=== PATIENT | female | born 1935 | race Caucasian/White ===

== ENCOUNTER 2019-01-31 22:16 | Emergency (ER) | payer OTHER ==
[2019-01-31] MEDS ORDERED: ONDANSETRON 4 MG/2 ML VIAL ONE (22:54)
[2019-01-31] MEDS ORDERED: MORPHINE 2 MG/ML SYR ONE (22:54)
[2019-01-31] MEDS ORDERED: NA CHLORIDE 0.9% 500 ML ONE (22:54)
[2019-01-31] MEDS ORDERED: FAMOTIDINE 20 MG/2 ML VIAL IV ONE (22:54)
[2019-01-31] MEDS ORDERED: PROMETHAZINE 25 MG/ML VIAL ONE (23:22)
[2019-01-31 23:27] LABS: Absolute Lymphocytes (CBC) 0.7 K/uL (0.7-4.9); Absolute Monocytes 0.3 K/uL (0.1-1.3); Absolute Neutrophil 8.6 K/uL (1.8-8.0); Basophils % 0.2 % (0-1.3); Eosinophils % 0.1 % (0-4.4); Hematocrit 38.2 % (36.0-45.0); Lymphocytes % 7.8 % (15.3-44.8); MPV 8.8 fL (7.6-11.3); Monocytes % 2.7 % (3.3-12.3); RBC Red Blood Cell Count 4.24 M/uL (3.86-4.86)
[2019-01-31 23:43] LABS: ALT/SGPT 23 U/L (12-78); AST/SGOT 22 U/L (15-37); Alkaline Phosphatase 109 U/L (45-117); BUN Blood Urea Nitrogen 19 mg/dL (7-18); Bicarbonate 30 mmol/L (21-32); Bilirubin Direct 0.1 mg/dL (0-0.2); Bilirubin Total 0.4 mg/dL (0.2-1.0); Glucose Level 171 mg/dL (74-106); Lipase 105 U/L (73-393); Magnesium 2.2 mg/dL (1.8-2.4); NT PRO-BNP 205 pg/mL (<450); Potassium 3.9 mmol/L (3.5-5.1); Protein, Total 7.3 g/dL (6.4-8.2); Sodium Level 140 mmol/L (136-145); Troponin (Emerg Dept Use Only) < 0.02 ng/mL (0.0-0.045)
[2019-02-01 00:14] LABS: Protime INR 0.95
[2019-02-01 00:40] LABS: Blood Morphology Comment NOT SEEN (NOT SEEN); Platelet Estimate ADEQ
[2019-02-01] MEDS ORDERED: MAGNESIUM CITRATE 300 ML BOT ONE (02:07)
[2019-02-01] MEDS ORDERED: NA CHLORIDE 0.9% 1,000 ML ONE (02:07)
--- NOTE | 2019-02-01 02:26 | EDPHYS ---
Physician Documentation [facility] Name: Hoa Canchola Age: 83 yrs Sex: Female : 1935 Arrival Date: 01/31/2019 Time: 22:28 Bed 30 Private MD: ED Physician Shemar Rincon HPI: 01/31 22:40 This 83 yrs old Female presents to ER via EMS with complaints of cp nausea/vomiting, abdominal pain. Historical: - Allergies: 22:49 No Known Allergies; cr4 - Home Meds: 22:49 Prilosec 20 mg Oral cpDR 1 cap once daily [Active]; alendronate 35 mg oral tab 1 tab cr4 once wkly [Active]; aspirin 81 mg Oral chew 1 tab once daily [Active]; Tylenol-Codeine #3 300-30 mg oral tab 1 tab bid for Pain [Active]; 22:57 temazepam 15 mg oral cap [Active]; cr4 - PMHx: 22:49 Diabetes - NIDDM; essential tremors; cr4 - PSHx: 22:49 Cholecystectomy; rotator cuff sx; vericose adan sx; cr4 - Immunization history:: Adult Immunizations up to date, Flu vaccine is up to date. - Social history:: Smoking status: Patient/guardian denies using tobacco, Patient/guardian denies using The patient lives. - Ebola Screening: : Patient negative for fever greater than or equal to 101.5 degrees Fahrenheit, and additional compatible Ebola Virus Disease symptoms Patient denies exposure to infectious person Patient denies travel to an Ebola-affected area in the 21 days before illness onset No symptoms or risks identified at this time. ROS: 22:55 Constitutional: Negative for body aches, chills, fever, poor PO intake. cp 22:55 Eyes: Negative for injury, pain, redness, and discharge. cp 22:55 ENT: Negative for drainage from ear(s), ear pain, sore throat, difficulty swallowing, difficulty handling secretions. 22:55 Cardiovascular: Negative for chest pain, edema, palpitations. 22:55 Respiratory: Negative for cough, shortness of breath, wheezing. 22:55 Abdomen/GI: Positive for abdominal pain, nausea and vomiting, Negative for diarrhea, constipation, hematemesis, black/tarry stool, rectal bleeding. 22:55 Back: Negative for pain at rest, pain with movement, radiated pain. 22:55 : Negative for urinary symptoms, vaginal bleeding. 22:55 Skin: Negative for cellulitis, rash. 22:55 Neuro: Negative for altered mental status, dizziness, headache, weakness. 22:55 All other systems are negative. Exam: 23:00 Constitutional: The patient appears alert, awake, non-toxic, well developed, well cp nourished, uncomfortable. 23:00 Head/Face: Normocephalic, atraumatic. cp 23:00 Eyes: Periorbital structures: appear normal, Conjunctiva: normal, no exudate, no injection, Lids and lashes: appear normal, bilaterally. 23:00 ENT: External ear(s): are unremarkable, Nose: is normal, Mouth: Lips: moist, Oral mucosa: moist, Posterior pharynx: is normal, airway is patent, no erythema, no exudate. 23:00 Neck: ROM/movement: is normal, is supple, without pain, no range of motions limitations, no nuchal rigidity. 23:00 Chest/axilla: Inspection: normal, Palpation: is normal, no crepitus, no tenderness. 23:00 Cardiovascular: Rate: normal, Rhythm: regular, Edema: is not appreciated, JVD: is not appreciated. 23:00 Respiratory: the patient does not display signs of respiratory distress, Respirations: normal, no use of accessory muscles, no retractions, no splinting, no tachypnea, Breath sounds: are clear throughout, no decreased breath sounds, no stridor, no wheezing. 23:00 Abdomen/GI: Inspection: distension, that is mild, Bowel sounds: active, all quadrants, Palpation: soft, in all quadrants, mild abdominal tenderness, in all quadrants, rebound tenderness, is not appreciated, voluntary guarding, is not appreciated, involuntary guarding, is not appreciated. 23:00 Back: pain, is absent, ROM is normal. 23:00 Skin: no rash present. 23:00 Neuro: Orientation: to person, place \T\ time. Mentation: is normal, Motor: moves all fours, strength is normal. Vital Signs: 23:04 BP 130 / 89 RA; Pulse 83; Resp 18 S; Temp 98(A); Pulse Ox 97% on R/A; rv 04/06 00:00 BP 99 / 59; Pulse 92; Resp 16; Pulse Ox 96% ; Pain 0/10; cr4 01:16 BP 102 / 57; Pulse 88; Temp 99; Pulse Ox 96% ; cr4 MDM: 01/31 22:32 Patient medically screened. cp 23:00 Differential diagnosis: Nonspecific abd pain, diverticulitis, bowel obstruction, acute cp HI, bowel perforation. 02/01 02:20 ED course: VSS. Patient reports pain and vomiting resolved. Patient reports large bowel cp movement while in ED. Will discharge to home for continued monitoring. 02:24 Data reviewed: vital signs, nurses notes, lab test result(s), EKG, radiologic studies, cp CT scan. 02:24 Test interpretation: by ED physician or midlevel provider: ECG. Test interpretation: by cp ED physician or midlevel provider: chest xray negative for infiltrates. Counseling: I had a detailed discussion with the patient and/or guardian regarding: the historical points, exam findings, and any diagnostic results supporting the discharge/admit diagnosis. Response to treatment: the patient's symptoms have markedly improved after treatment, and as a result, I will discharge patient. 01/31 22:36 Order name: Basic Metabolic Panel 04 22:36 Order name: CBC with Diff cp 01/31 22:36 Order name: LFT's cp 01/31 22:36 Order name: Magnesium cp 04 22:36 Order name: NT PRO-BNP cp 01/31 22:36 Order name: PT-INR cp 01/31 22:36 Order name: Troponin (emerg Dept Use Only); Complete Time: 00:10 cp 01/31 22:36 Order name: Lipase; Complete Time: 00:10 cp 01/31 22:36 Order name: Basic Metabolic Panel; Complete Time: 00:10 EDMS 02/01 01:58 Interpretation: Normal except: GLUC 171; BUN 19. cp 01/31 22:36 Order name: CBC with Automated Diff; Complete Time: 01:30 EDMS 02/01 01:59 Interpretation: Normal except: BERTO% 89.2; LYM% 7.8; MN% 2.7; NEUT A 8.6. cp 01/31 22:36 Order name: Liver (Hepatic) Function; Complete Time: 00:10 EDMS 01/31 22:36 Order name: Magnesium; Complete Time: 00:10 EDMS 01/31 22:36 Order name: NT PRO-BNP; Complete Time: 00:10 EDMS 01/31 22:36 Order name: Protime (+INR); Complete Time: 01:30 EDMS 01/31 22:36 Order name: XRAY Chest (1 view) cp 01/31 22:36 Order name: Cardiac monitoring; Complete Time: 02:27 cp 01/31 22:36 Order name: EKG - Nurse/Tech; Complete Time: 02:27 cp 02/01 00:09 Order name: CT Abd/Pelvis - W/Contrast: no oral contrast cp 02/01 00:39 Order name: Manual Differential; Complete Time: 01:30 EDMS 02/01 01:30 Interpretation: Normal except: SEGS 86; BANDS [F] 4; LYM 7. cp 02/01 02:31 Order name: Urine Dipstick--Ancillary (enter results) cm6 01/31 22:36 Order name: IV Saline Lock; Complete Time: 02:27 cp 01/31 22:36 Order name: Labs collected and sent; Complete Time: 02:26 cp 01/31 22:36 Order name: O2 Per Protocol; Complete Time: 02:27 cp 01/31 22:36 Order name: O2 Sat Monitoring; Complete Time: 02:27 cp Administered Medications: 01/31 22:50 Drug: Pepcid 20 mg Route: IVP; Site: right antecubital; rv 23:00 Follow up: Response: No adverse reaction cr4 22:50 Drug: Zofran 4 mg Route: IVP; Site: right antecubital; rv 23:10 Follow up: Response: No adverse reaction; Nausea unchanged cr4 22:50 Drug: morphine 2 mg Route: IVP; Site: right antecubital; rv 23:37 Follow up: Response: No adverse reaction cr4 23:01 Drug: NS 0.9% 500 ml Route: IV; Rate: 250 ml/hr; Site: right antecubital; rv 23:25 Follow up: Response: No adverse reaction; IV Status: Completed infusion; IV Intake: cr4 440ml 23:01 Not Given (SHIFTED TO IV): Zofran 4 mg PO once rv 23:18 Drug: Phenergan 12.5 mg Route: IVP; Site: right antecubital; cr4 23:37 Follow up: Response: No adverse reaction; Nausea is decreased cr4 02/01 02:00 Drug: Magnesium Citrate Liquid 300 ml Route: PO; cr4 02:40 Follow up: Response: No adverse reaction; Other cr4 02:00 Drug: NS 0.9% 1000 ml Route: IV; Rate: 75 ml/hr; Site: right antecubital; cr4 02:40 Follow up: Response: No adverse reaction; IV Status: Order to discontinue infusion; IV cr4 Intake: 79ml 02:19 Not Given (on hold per orders): Dulcolax Suppository 10 mg OR once cr4 Disposition: 02:49 Co-signature as Attending Physician, hSemar Rincon MD. chaparro Disposition: 02/01/19 02:25 Discharged to Home. Impression: Nausea and vomiting, Constipation, Fecal impaction. - Condition is Stable. - Discharge Instructions: Constipation, Adult, Nausea and Vomiting, Adult, Fecal Impaction. - Prescriptions for docusate sodium 100 mg Oral capsule - take 1 capsule by ORAL route 2 times per day; 30 capsule. Zofran 4 mg Oral Tablet - take 1 tablet by ORAL route every 12 hours As needed; 20 tablet. - Medication Reconciliation Form, Thank You Letter, Antibiotic Education, Prescription Opioid Use form. - Follow up: Private Physician; When: 1 - 2 days; Reason: Recheck today's complaints. - Problem is new. - Symptoms have improved. Signatures: Dispatcher [employer] EDMS Shemar Rincon MD MD pkSuzie De La Garza RN RN cr4 Kaveh Betts PA PA cp Vicente, Ronaldo RN RN rv Corrections: (The following items were deleted from the chart) 01/31 22:57 22:49 Home Meds: Temazepam 5mg Oral 1 cap once daily; cr4 cr4 02/01 02:47 02:25 02/01/2019 02:25 Discharged to Home. Impression: Nausea and vomiting; cr4 Constipation; Fecal impaction. Condition is Stable. Forms are Medication Reconciliation Form, Thank You Letter, Antibiotic Education, Prescription Opioid Use. Follow up: Private Physician; When: 1 - 2 days; Reason: Recheck today's complaints. Problem is new. Symptoms have improved. cp
--- NOTE | 2019-02-01 02:26 | ER ---
Nurse's Notes [facility] Name: Hoa Canchola Age: 83 yrs Sex: Female : 1935 Arrival Date: 01/31/2019 Time: 22:28 Bed 30 Private MD: Diagnosis: Nausea and vomiting;Constipation;Fecal impaction Presentation: 01/31 22:29 Presenting complaint: Patient states: patient started having nausea with uncontrolled cr4 vomiting which started at around 1900. No reports of abd last bm 01/30. EMS reported patient vomiting 300-400ml on route to ER. was given a total of 4mg Zofran IV. Transition of care: patient was not received from another setting of care. Onset of symptoms was January 31, 2019. Risk Assessment: Do you want to hurt yourself or someone else? Patient reports no desire to harm self or others. Initial Sepsis Screen: Does the patient meet any 2 criteria? No. Patient's initial sepsis screen is negative. Care prior to arrival: Medication(s) given: zofran 4 mg. Activity prior to arrival: moaning due to nausea. 22:29 Method Of Arrival: EMS: [facility] cr4 22:29 Acuity: GUZMAN 3 cr4 22:56 Initial Sepsis Screen:. cr4 23:03 Initial Sepsis Screen: Does the patient have a suspected source of infection? No. cr4 Patient's initial sepsis screen is negative. 23:04 Initial Sepsis Screen: Does the patient have a suspected source of infection? No. rv Patient's initial sepsis screen is negative. Triage Assessment: 22:50 General: Appears uncomfortable, slender, well groomed, Behavior is restless. Pain: cr4 Denies pain. EENT: No deficits noted. Neuro: No deficits noted. Denies weakness dizziness, difficulty swallowing, numbness headache. Cardiovascular: No deficits noted. Denies chest pain, fatigue, lightheadedness, shortness of breath. Cardiovascular: Capillary refill < 3 seconds. Respiratory: No deficits noted. Airway is patent Trachea midline Respiratory effort is even, unlabored, Respiratory pattern is regular, Breath sounds are clear bilaterally. GI: Abdomen is round distended, Pt is actively vomiting clear fluid, Last BM was January 30, 2019. Bowel sounds diminished in right upper quadrant, left upper quadrant, right lower quadrant and left lower quadrant hypoactive in right upper quadrant, left upper quadrant, right lower quadrant and left lower quadrant Abd is non tender X 4 quads Reports Patient currently denies abdominal pain, constipation, diarrhea. : Denies burning with urination, pain urinary frequency. Derm: No deficits noted. Musculoskeletal: No deficits noted. Historical: - Allergies: 22:49 No Known Allergies; cr4 - Home Meds: 22:49 Prilosec 20 mg Oral cpDR 1 cap once daily [Active]; alendronate 35 mg oral tab 1 tab cr4 once wkly [Active]; aspirin 81 mg Oral chew 1 tab once daily [Active]; Tylenol-Codeine #3 300-30 mg oral tab 1 tab bid for Pain [Active]; 22:57 temazepam 15 mg oral cap [Active]; cr4 - PMHx: 22:49 Diabetes - NIDDM; essential tremors; cr4 - PSHx: 22:49 Cholecystectomy; rotator cuff sx; vericose adan sx; cr4 - Immunization history:: Adult Immunizations up to date, Flu vaccine is up to date. - Social history:: Smoking status: Patient/guardian denies using tobacco, Patient/guardian denies using The patient lives. - Ebola Screening: : Patient negative for fever greater than or equal to 101.5 degrees Fahrenheit, and additional compatible Ebola Virus Disease symptoms Patient denies exposure to infectious person Patient denies travel to an Ebola-affected area in the 21 days before illness onset No symptoms or risks identified at this time. Screenin:03 Abuse screen: Denies threats or abuse. Denies injuries from another. Nutritional rv screening: No deficits noted. Tuberculosis screening: No symptoms or risk factors identified. Fall Risk None identified. Assessment: 22:57 General: See triage assessment. cr4 23:38 Reassessment: Patient and/or family updated on plan of care and expected duration. Pain cr4 level reassessed. Patient is alert, oriented x 3, equal unlabored respirations, skin warm/dry/pink. Patient states feeling better. Patient states symptoms have improved. 04/06 00:53 Reassessment: No changes from previously documented assessment. Patient denies pain at cr4 this time. Patient states feeling better. Patient states symptoms have improved. 01:50 Reassessment: No changes from previously documented assessment. Patient and/or family cr4 updated on plan of care and expected duration. Pain level reassessed. Patient states feeling better. up to bathroom urine sample optained.. 02:20 GI: Reports having large bm Patient currently denies nausea, pain, vomiting. cr4 Vital Signs: 01/31 23:04 BP 130 / 89 RA; Pulse 83; Resp 18 S; Temp 98(A); Pulse Ox 97% on R/A; rv 02/01 00:00 BP 99 / 59; Pulse 92; Resp 16; Pulse Ox 96% ; Pain 0/10; cr4 01:16 BP 102 / 57; Pulse 88; Temp 99; Pulse Ox 96% ; cr4 ED Course: 01/31 22:28 Patient arrived in ED. rv 22:32 Kaveh Betts PA is PHCP. cp 22:32 Shemar Rincon MD is Attending Physician. cp 22:34 Triage completed. cr4 22:45 Inserted saline lock: 20 gauge in right antecubital area, using aseptic technique. rv Blood collected. 22:58 XRAY Chest (1 view) In Process Unspecified. EDMS 23:03 Arm band placed on right wrist. rv 23:39 Patient has correct armband on for positive identification. Bed in low position. Side cr4 rails up X2. environmental monitoring specialist on. 02/01 00:[address] cr4 00:58 CT Abd/Pelvis - W/Contrast: no oral contrast In Process Unspecified. EDMS 02:45 IV discontinued, intact, bleeding controlled, No redness/swelling at site. cr4 02:45 No provider procedures requiring assistance completed. cr4 03:34 Basic Metabolic Panel Sent. cr4 03:34 CBC with Diff Sent. cr4 03:34 LFT's Sent. cr4 03:34 Magnesium Sent. cr4 03:34 PT-INR Sent. cr4 Administered Medications: 01/31 22:50 Drug: Pepcid 20 mg Route: IVP; Site: right antecubital; rv 23:00 Follow up: Response: No adverse reaction cr4 22:50 Drug: Zofran 4 mg Route: IVP; Site: right antecubital; rv 23:10 Follow up: Response: No adverse reaction; Nausea unchanged cr4 22:50 Drug: morphine 2 mg Route: IVP; Site: right antecubital; rv 23:37 Follow up: Response: No adverse reaction cr4 23:01 Drug: NS 0.9% 500 ml Route: IV; Rate: 250 ml/hr; Site: right antecubital; rv 23:25 Follow up: Response: No adverse reaction; IV Status: Completed infusion; IV Intake: cr4 440ml 23:01 Not Given (SHIFTED TO IV): Zofran 4 mg PO once rv 23:18 Drug: Phenergan 12.5 mg Route: IVP; Site: right antecubital; cr4 23:37 Follow up: Response: No adverse reaction; Nausea is decreased cr4 04 02:00 Drug: Magnesium Citrate Liquid 300 ml Route: PO; cr4 02:40 Follow up: Response: No adverse reaction; Other cr4 02:00 Drug: NS 0.9% 1000 ml Route: IV; Rate: 75 ml/hr; Site: right antecubital; cr4 02:40 Follow up: Response: No adverse reaction; IV Status: Order to discontinue infusion; IV cr4 Intake: 79ml 02:19 Not Given (on hold per orders): Dulcolax Suppository 10 mg ND once cr4 Intake: 01/31 23:25 IV: 440ml; Total: 440ml. cr4 04 02:40 IV: 79ml; Total: 519ml. cr4 Outcome: 02:25 Discharge ordered by MD. cp 02:45 Discharged to home ambulatory, with family. cr4 02:45 Condition: improved 02:45 Discharge instructions given to patient, family, Instructed on discharge instructions, follow up and referral plans. medication usage, Demonstrated understanding of instructions, follow-up care, medications, Prescriptions given X 2. 02:47 Patient left the ED. cr4 Signatures: Dispatcher [employer] EDSuzie Null RN RN cr4 Kaveh Betts PA PA cp Vicente, Ronaldo RN RN rv Corrections: (The following items were deleted from the chart) 01/31 22:57 22:49 Home Meds: Temazepam 5mg Oral 1 cap once daily; cr4 cr4 02/01 03:32 03:31 No provider procedures requiring assistance completed. cr4 cr4
[2019-02-01 03:03] LABS: Urine Blood TRACE (NEG); Urine Glucose NEGATIVE (NEG); Urine Protein NEGATIVE (NEG); Urine Specific Gravity 1.015 (1.005-1.030)
[2019-02-01 04:10] VITALS: O2SAT 96
[2019-02-01 04:11] VITALS: BP 102/57; TEMP 99
--- NOTE | 2019-02-01 07:41 | RAD REPORT ---
EXAM DESCRIPTION: RAD - Chest Single View - 01/31/2019 10:58 pm CLINICAL HISTORY: Abdominal pain, vomiting COMPARISON: January 2012 TECHNIQUE: AP portable chest image was obtained 2244 hours . FINDINGS: No focal mass or consolidation. No failure or volume overload. Interstitial markings are p rominent, increased from the comparison. Over this long interval. This could be progressive fibrosis or represent acute interstitial edema or infiltrate. Heart and vasculature are normal. No measurable pleural effusion and no pneumothorax. No acute bone finding. Thoracolumbar scoliosis noted. No acute aortic findings suspected. IMPRESSION: No focal mass, consolidation or significant failure finding. Prominent interstitial pattern increased over comparison. Over such a long interval, interstitial change could be progressive fibrosis, acute infiltrate or acu te interstitial edema.
--- NOTE | 2019-02-01 11:48 | RAD REPORT ---
EXAM DESCRIPTION: CT - Abdomen Pelvis W Contrast - 02/01/2019 1:25 am CLINICAL HISTORY: The patient is 83 years old and is Female; ABD PAIN TECHNIQUE: Axial computed tomography images of the abdomen and pelvis with intravenous contrast. S agittal and coronal reformatted images were created and reviewed. This CT exam was performed using one or more of the following dose reduction techniques: automated exposure control, adjustment of t he mA and/or kV according to patient size, and/or use of iterative reconstruction technique. COMPARISON: None. FINDINGS: LUNG BASES: Bibasilar chronic lung changes. HEART: Visualized heart is enlarged. Calcification of the mitral annulus. ABDOMEN: LIVER: Unremarkable. No mass. GALLBLADDER AND BILE DUCTS: Prior cholecystectomy with diffuse intrahepatic ductal dilatation and prominence of the common bile duct. PANCREAS: Unremarkable. No mass. No ductal dilation. SPLEEN: Unremarkable. No splenomegaly. ADRENALS: Unremarkable. No mass. KIDNEYS AND URETERS: Unremarkable. No solid mass. No hydronephrosis. STOMACH AND BOWEL: Marked distention of the rectum measuring 10 cm with distention of the sigmoid. Additionally, there is advanced over the center of the large bowel. No mucosal thickening. PELVIS: APPENDIX: The appendix is seen and is within normal limits BLADDER: Unremarkable. No mass. REPRODUCTIVE: Partially evaluated heterogenous mass in the region of the uterine fundus, likely fi broid. ABDOMEN and PELVIS: INTRAPERITONEAL SPACE: Unremarkable. No free air. No significant fluid collection. BONES/JOINTS: Grade 1 anterolisthesis of L4 on L5. Advanced facet arthropathy Multilevel degenerative disc disease. Diffuse osteopenia. No acute fracture. No dislocation. SOFT TISSUES: Unremarkable. VASCULATURE: Unremarkable. No abdominal aortic aneurysm. LYMPH NODES: Unremarkable. No enlarged lymph nodes. IMPRESSION: 1. Marked distention of the rectum and sigmoid colon as well as severe stool burden krause ggestive of fecal impaction and/or advanced constipation. 2. Prior cholecystectomy with diffuse intrahepatic and extrahepatic ductal dilatation. No radiopaqu e stone 3. Cardiomegaly and bibasilar chronic lung changes. 4. Possible uterine fundus fibroid. 5. Grade 1 anterolisthesis of L4-L5 and a degenerative basis. 6. Diffuse osteopenia. Electronically signed by: Khris Carolina DO 02/01/2019 1:18 AM CDT Due to temporary technical issues with the PACS/Fluency reporting system, reports are being signed by the in house radiologist as a courtesy to ensure prompt reporting. The interpreting radiologist is f ully responsible for the content of the report.
== END 2019-02-01 02:47 | disposition home or self-care (01) ==
LOC: ER 22:16
DX: K56.41 Fecal impaction (principal); K59.00 Constipation, unspecified; E11.9 Type 2 diabetes mellitus without complications; Z79.82 Long term (current) use of aspirin
CPT/HCPCS: 96361; 85025; 80048; 36415; 83735; 85610; 80076; 81003; 84484; 83690; 83880; 74177; 71045; 96375; 96374; 99284; Q9967; J2550; J2270; J7030; J2405

== ENCOUNTER 2019-05-12 11:32 | Emergency (ER) | payer OTHER ==
--- NOTE | 2019-05-12 11:57 | RAD REPORT ---
EXAM DESCRIPTION: CT - Head Brain Wo Cont - 05/12/2019 11:45 am CLINICAL HISTORY: TRAUMA Syncope, head injury, trauma COMPARISON: No comparisons TECHNIQUE: All CT scans are performed using dose optimization technique as appropriate and may inclu de automated exposure control or mA/KV adjustment according to patient size. FINDINGS: No intracranial hemorrhage, hydrocephalus or extra-axial fluid collection.Mild generalized brain atrophy.No areas of brain edema or evidence of midline shift. The paranasal sinuses and mastoids are clear. The calvarium is intact. IMPRESSION: No acute intracranial abnormality.
[2019-05-12] MEDS ORDERED: DERMABOND SKIN ADHESIVE TOP ONE (12:54)
--- NOTE | 2019-05-12 12:56 | ER ---
Nurse's Notes [facility] [place] Name: Hoa Canchola Age: 83 yrs Sex: Female : 1935 Arrival Date: 05/12/2019 Time: 11:33 Bed 8 Private MD: Alex Cazares E Diagnosis: Laceration without foreign body left ear;Hematoma of pinna, left ear Presentation: 05/12 11:42 Presenting complaint: Patient states: Fell approximately 2 hours ago in shower. ss bruising, swelling with small amount of bleeding noted to L ear. Pt is awake, alert and oriented x 3. Care prior to arrival: None. Mechanism of Injury: Fall from standing position. Trauma event details: Injury occurred in the [facility], Injury occurred: at home. Injury occurred: May 12, 2019. 11:42 Acuity: GUZMAN 2 ss 11:42 Method Of Arrival: Wheelchair ss 11:42 Transition of care: patient was not received from another setting of care. Onset of ss symptoms was May 12, 2019. Risk Assessment: Do you want to hurt yourself or someone else? Patient reports no desire to harm self or others. Initial Sepsis Screen: Does the patient meet any 2 criteria? No. Patient's initial sepsis screen is negative. Does the patient have a suspected source of infection? No. Patient's initial sepsis screen is negative. Trauma Activation: Alert Physician: ED Physician; Name: ; Notified At: ; Arrived At: Physician: General Surgeon; Name: ; Notified At: ; Arrived At: Physician: Radiology; Name: ; Notified At: ; Arrived At: Physician: Respiratory; Name: ; Notified At: ; Arrived At: Physician: Lab; Name: ; Notified At: ; Arrived At: Historical: - Allergies: 11:48 No Known Allergies; ss - PMHx: 11:48 Diabetes - NIDDM; ESSENTIAL TREMORS; ss - PSHx: 11:48 Cholecystectomy; rotator cuff sx; vericose adan sx; ss - Immunization history: Last tetanus immunization: unknown. - Social history:: Smoking status: Patient/guardian denies using tobacco. - Ebola Screening: : Patient denies exposure to infectious person Patient denies travel to an Ebola-affected area in the 21 days before illness onset. Screenin:42 Abuse screen: Denies threats or abuse. Denies injuries from another. Tuberculosis ss screening: Never had TB. Fall risk At risk due to age, prior history of falls. Primary Survey: 11:42 NO uncontrolled hemorrhage observed. A: The patient is alert. Airway: patent. ss Breathing/Chest: Respiratory pattern: regular, Respiratory effort: spontaneous, unlabored. Circulation: Pulses: palpable right radial artery and left radial artery. Skin color: pink, Skin temperature: warm. Disability Alert. Exposure/Environment: There is no evidence of uncontrolled external bleeding. Obvious injury(ies) are noted at this time: bruising, swelling and small amount of bleeding noted to L ear. Assessment: 12:10 General: Appears in no apparent distress. well groomed, well developed, well nourished, sg Behavior is calm, cooperative, appropriate for age. Pain: Complains of pain in left ear Quality of pain is described as aching, tender. 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 Full function Gait is steady, Speech is normal, Facial symmetry appears normal. Cardiovascular: Capillary refill is brisk in bilateral fingers Patient's skin is warm and dry. Chest pain is denied. Respiratory: Airway is patent Respiratory effort is even, unlabored, Respiratory pattern is regular, symmetrical. GI: No deficits noted. : No signs and/or symptoms were reported regarding the genitourinary system. EENT: Ear canal clear on right ear and left ear Throat is clear. Derm: Skin is pink, warm \T\ dry. Musculoskeletal: Circulation, motion, and sensation intact. Range of motion: intact in all extremities. Vital Signs: 11:42 BP 137 / 81; Pulse 95; Resp 18; Pulse Ox 99% on R/A; Weight 46.72 kg; Height 5 ft. 3 ss in. (160.02 cm); Pain 0/10; 12:40 BP 130 / 72; Pulse 82; Resp 17; Temp 97.6; Pulse Ox 99% on R/A; sg 11:42 Body Mass Index 18.25 (46.72 kg, 160.02 cm) [place] Coma Score: 11:42 Eye Response: spontaneous(4). Verbal Response: oriented(5). Motor Response: obeys commands(6). Total: 15. 12:40 Eye Response: spontaneous(4). Verbal Response: oriented(5). Motor Response: obeys sg commands(6). Total: 15. Trauma Score (Adult): 11:42 Eye Response: spontaneous(1); Verbal Response: oriented(1); Motor Response: obeys ss commands(2); Systolic BP: > 89 mm Hg(4); Respiratory Rate: 10 to 29 per min(4); [place] Score: 15; Trauma Score: 12 12:40 Eye Response: spontaneous(1); Verbal Response: oriented(1); Motor Response: obeys sg commands(2); Systolic BP: > 89 mm Hg(4); Respiratory Rate: 10 to 29 per min(4); Stokes Score: 15; Trauma Score: 12 ED Course: 11:33 Patient arrived in ED. rg4 11:33 Alex Cazares MD is Private Physician. rg4 11:38 Jeferson Andersen, RN is Primary Nurse. sg 11:39 Darwin Gleason PA is PHCP. jr8 11:39 Sawyer Hwang MD is Attending Physician. jr8 11:42 Patient has correct armband on for positive identification. Bed in low position. Call ss light in reach. Patient maintains SpO2 saturation greater than 95% on room air. 11:42 Patient maintains SpO2 saturation greater than 95% on room air. ss 11:45 CT Head Brain wo Cont In Process Unspecified. EDMS 11:45 Triage completed. ss 11:48 Arm band placed on right wrist. ss 12:10 Thermoregulation: warm blanket given to patient. sg 12:55 Alex Cazares MD is Referral Physician. jr8 13:20 No provider procedures requiring assistance completed. Patient did not have IV access sg during this emergency room visit. Administered Medications: No medications were administered Outcome: 12:56 Discharge ordered by . jr8 13:20 Discharged to home via wheelchair, with family. sg 13:20 Condition: good 13:20 Discharge instructions given to patient, family, Instructed on discharge instructions, follow up and referral plans. safety practices, wound care, Demonstrated understanding of instructions, follow-up care, wound care. 13:20 Patient's length of stay in the Emergency Department was greater than 2 hours. dispo sg per providerPatient's length of stay extended due to 13:27 Patient left the ED. sg Signatures: Dispatcher [employer] Jeferson Elizabteh RN RN sg Smirch, Shelby, RN RN ss Darwin Gleason PA PA [facility]
--- NOTE | 2019-05-12 12:57 | EDPHYS ---
Physician Documentation [facility] Name: Hoa Canchola Age: 83 yrs Sex: Female : 1935 Arrival Date: 05/12/2019 Time: 11:33 Bed 8 Private MD: Alex Cazares E ED Physician Sawyer Hwang HPI: 05/12 11:57 This 83 yrs old Female presents to ER via Wheelchair with complaints of Fall jr8 Injury. 11:57 Details of fall: The patient fell from an upright position, while standing. Onset: The jr8 symptoms/episode began/occurred acutely, just prior to arrival. Associated injuries: The patient sustained injury to the head, contusion, laceration, 1 cm(s), of the left ear, swelling. Severity of symptoms: At their worst the symptoms were mild, in the emergency department the symptoms are unchanged. The patient has not experienced similar symptoms in the past. The patient has not recently seen a physician. was standing in bathroom and leaned on side of tub, fell into tub striking left ear. Denies pain, denies LOC.. Historical: - Allergies: 11:48 No Known Allergies; ss - PMHx: 11:48 Diabetes - NIDDM; ESSENTIAL TREMORS; ss - PSHx: 11:48 Cholecystectomy; rotator cuff sx; vericose adan sx; ss - Immunization history: Last tetanus immunization: unknown. - Social history:: Smoking status: Patient/guardian denies using tobacco. - Ebola Screening: : Patient denies exposure to infectious person Patient denies travel to an Ebola-affected area in the 21 days before illness onset. ROS: 11:57 Constitutional: Negative for fever, chills, and weight loss, Eyes: Negative for injury, jr8 pain, redness, and discharge, Neck: Negative for injury, pain, and swelling, Cardiovascular: Negative for chest pain, palpitations, and edema, Respiratory: Negative for shortness of breath, cough, wheezing, and pleuritic chest pain, Abdomen/GI: Negative for abdominal pain, nausea, vomiting, diarrhea, and constipation, Back: Negative for injury and pain, MS/Extremity: Negative for injury and deformity, Skin: Negative for injury, rash, and discoloration, Neuro: Negative for headache, weakness, numbness, tingling, and seizure. 11:57 ENT: Positive for injury or acute deformity, contusion, laceration, Negative for drainage from ear(s), ear pain, hearing loss, Teeth pain Exam: 12:00 Constitutional: This is a well developed, well nourished patient who is awake, alert, jr8 and in no acute distress. Head/Face: Normocephalic, atraumatic. Neck: Trachea midline, no thyromegaly or masses palpated, and no cervical lymphadenopathy. Supple, full range of motion without nuchal rigidity, or vertebral point tenderness. No Meningismus. Chest/axilla: Normal chest wall appearance and motion. Nontender with no deformity. No lesions are appreciated. Cardiovascular: Regular rate and rhythm with a normal S1 and S2. No gallops, murmurs, or rubs. Normal PMI, no JVD. No pulse deficits. Respiratory: Lungs have equal breath sounds bilaterally, clear to auscultation and percussion. No rales, rhonchi or wheezes noted. No increased work of breathing, no retractions or nasal flaring. Abdomen/GI: Soft, non-tender, with normal bowel sounds. No distension or tympany. No guarding or rebound. No evidence of tenderness throughout. Back: No spinal tenderness. No costovertebral tenderness. Full range of motion. Skin: Warm, dry with normal turgor. Normal color with no rashes, no lesions, and no evidence of cellulitis. MS/ Extremity: Pulses equal, no cyanosis. Neurovascular intact. Full, normal range of motion. Neuro: Awake and alert, GCS 15, oriented to person, place, time, and situation. Cranial nerves II-XII grossly intact. Motor strength 5/5 in all extremities. Sensory grossly intact. Cerebellar exam normal. Normal gait. 12:00 ENT: External ear(s): contusion, on the pinna of left ear, laceration, to the pinna of left ear, swelling, Ear canal(s): are normal, no swelling, Examination of the other ear shows no obvious abnormality. Vital Signs: 11:42 BP 137 / 81; Pulse 95; Resp 18; Pulse Ox 99% on R/A; Weight 46.72 kg; Height 5 ft. 3 ss in. (160.02 cm); Pain 0/10; 12:40 BP 130 / 72; Pulse 82; Resp 17; Temp 97.6; Pulse Ox 99% on R/A; sg 11:42 Body Mass Index 18.25 (46.72 kg, 160.02 cm) ss [place] Coma Score: 11:42 Eye Response: spontaneous(4). Verbal Response: oriented(5). Motor Response: obeys ss commands(6). Total: 15. 12:40 Eye Response: spontaneous(4). Verbal Response: oriented(5). Motor Response: obeys sg commands(6). Total: 15. Trauma Score (Adult): 11:42 Eye Response: spontaneous(1); Verbal Response: oriented(1); Motor Response: obeys ss commands(2); Systolic BP: > 89 mm Hg(4); Respiratory Rate: 10 to 29 per min(4); [place] Score: 15; Trauma Score: 12 12:40 Eye Response: spontaneous(1); Verbal Response: oriented(1); Motor Response: obeys sg commands(2); Systolic BP: > 89 mm Hg(4); Respiratory Rate: 10 to 29 per min(4); [place] Score: 15; Trauma Score: 12 Laceration: 12:56 Wound Repair of 1cm ( 0.4in ) subcutaneous laceration to pinna of left ear. Linear jr8 shaped.. Minimal bleeding noted.. Distal neuro/vascular/tendon intact. Skin closed with 1-0 Prolene using Dermabond. Dressed with pressure dressing. Patient tolerated well. MDM: 11:39 Patient medically screened. jr8 12:54 Data reviewed: vital signs, nurses notes, and as a result, I will discharge patient. jr8 Data interpreted: Pulse oximetry: on room air is 99 %. Interpretation: normal. Counseling: I had a detailed discussion with the patient and/or guardian regarding: the historical points, exam findings, and any diagnostic results supporting the discharge/admit diagnosis, the need for outpatient follow up, a family practitioner, to return to the emergency department if symptoms worsen or persist or if there are any questions or concerns that arise at home. 05/12 11:39 Order name: CT Head Brain wo Cont; Complete Time: 12:12 jr8 05/12 12:25 Order name: Dermabond; Complete Time: 12:59 jr8 Administered Medications: No medications were administered Disposition: 16:42 Co-signature as Attending Physician, Sawyer Hwang MD I agree with the assessment and kdr plan of care. 16:42 Co-signature as Attending Physician, Sawyer Hwang MD I agree with the assessment and kdr plan of care. Disposition: 05/12/19 12:56 Discharged to Home. Impression: Laceration without foreign body left ear, Hematoma of pinna, left ear. - Condition is Stable. - Discharge Instructions: Hematoma, Laceration Care, Adult, Stitches, [place], or Adhesive Wound Closure. - Medication Reconciliation Form, Thank You Letter, Antibiotic Education, Prescription Opioid Use form. - Follow up: Alex Cazares MD; When: 2 - 3 days; Reason: Wound Recheck, Recheck today's complaints, Continuance of care, Re-evaluation by your physician. - Problem is new. - Symptoms have improved. Signatures: Dispatcher [employer] EDJeferson Baltazar RN RN Sawyer Perez MD MD [facility] Sharon Odonnell RN RN ss Roszak, Josh, PA PA jr8 Corrections: (The following items were deleted from the chart) 12:55 12:54 Counseling: I had a detailed discussion with the patient and/or guardian yuli regarding: the historical points, exam findings, and any diagnostic results supporting the discharge/admit diagnosis, the need for outpatient follow up, a rail maintenance worker, to return to the emergency department if symptoms worsen or persist or if there are any questions or concerns that arise at home, yuli 13:27 12:56 05/12/2019 12:56 Discharged to Home. Impression: Laceration without foreign body sg left ear; Hematoma of pinna, left ear. Condition is Stable. Forms are Medication Reconciliation Form, Thank You Letter, Antibiotic Education, Prescription Opioid Use. Follow up: Alex Cazares; When: 2 - 3 days; Reason: Wound Recheck, Recheck today's complaints, Continuance of care, Re-evaluation by your physician. Problem is new. Symptoms have improved. jr8
[2019-05-12 13:42] VITALS: BP 137/81; O2SAT 99
== END 2019-05-12 13:27 | disposition home or self-care (01) ==
LOC: ER 11:32
PROC: 0HQ3XZZ Repair Left Ear Skin, External Approach (ICD-10-PCS; principal; 2019-05-12)
DX: S01.312A Laceration without foreign body of left ear, initial encounter (principal); W22.8XXA Striking against or struck by other objects, initial encounter; Y93.E1 Activity, personal bathing and showering; Y92.9 Unspecified place or not applicable
CPT/HCPCS: 70450; 99284